=== PATIENT | male | born 1940 | race Caucasian/White ===

== ENCOUNTER → 2020-03-30 | Outpatient (CLI) | payer MEDICARE ==
[~2020-03-30] MED LIST: Z.0.MELOXICAM7.5 MG PO; Z.0.OMEPRAZOLE40 MG PO; Z.0.SIMVASTATIN40 MG PO; Z.0.TAMSULOSIN HCL0. PO
== END ==
LOC: MRI 10:25
PROVIDERS: ATTEND Specialist
DX: M75.102 Unspecified rotator cuff tear or rupture of left shoulder, not specified as traumatic (principal)